=== PATIENT | female | born 1970 | race Caucasian/White ===

== ENCOUNTER 2021-08-17 07:00 | Emergency (ER) | payer MEDICARE ==
[~2021-08-17] VITALS: Ht 162.6 cm; Wt 114.0 kg
[2021-08-17 07:36] VITALS: BP 143/103
[2021-08-17 07:46] VITALS: BP 131/94
[2021-08-17] MEDS ORDERED: CYCLOBENZAPRINE10 MG PO (07:52)
[2021-08-17] MEDS ORDERED: DILAUDID2 MG PO (07:52)
[2021-08-17 08:00] VITALS: BP 155/91
[2021-08-17 08:02] VITALS: BP 155/91
== END 2021-08-17 08:10 | disposition home or self-care (01) ==
LOC: ED 07:00
DX: M54.30 Sciatica, unspecified side (principal)

== ENCOUNTER 2022-08-09 18:25 | Emergency (ER) | payer MEDICARE, MEDICAID ==
[~2022-08-09] VITALS: Ht 162.6 cm; Wt 111.0 kg
[2022-08-09] VITALS (18 sets, daily range): BP systolic 96–149; BP diastolic 42–131
[~2022-08-09 18:25] MED LIST: CYCLOBENZAPRINE10 MG PO; DILAUDID2 MG PO
[2022-08-09 19:51] LABS: BASO% 0.2 % (0-3); EOS% 0.7 % (0-8); HEMATOCRIT 44.3 % (37.0-47.0); HEMOGLOBIN 14.2 g/dl (12.0-16.0); IMMATURE GRANULOCYTES 0.5 % (0.0-5.0); LYMPH% 15.5 % (15-41); MEAN CELL VOLUME 94.9 fL CALC (80.0-100.0); MEAN CORPUSCULAR HGB 30.4 pG CALC (26.0-32.0); MEAN CORPUSCULAR HGB CONC 32.1 g/dL CAL (32.0-36.0); MONO% 5.9 % (2-13); NEUT# 14.41 thou/uL (2.00-7.15); NEUT% 77.2 % (42-76); RED BLOOD COUNT 4.67 mill/uL (4.20-5.60); RED CELL DISTRI WIDTH 12.4 % (11.5-15.5)
[2022-08-09 20:05] LABS: ALBUMIN 4.7 g/dL (3.2-5.0); ALKALINE PHOSPHATASE 86 u/l (38-126); ANION GAP 15 (6-22 (CALC)); BILIRUBIN, TOTAL 0.2 mg/dL (0.02-1.3); BUN 14 mg/dL (7-17); BUN/CREATININE RATIO 14 (12-20 (CALC)); CARBON DIOXIDE 26 mmol/l (22-30); CHLORIDE 103 mmol/l (95-108); GFR FOR AFR.AMER. > 60 ML/MIN (>=60 (CALC)); GFR OTHER RACES 58 ML/MIN (>=60 (CALC)); POTASSIUM 4.3 mmol/l (3.5-5.1); SGOT/AST 37 u/l (14-36); SODIUM 140 mmol/l (137-146); TOTAL PROTEIN 7.8 g/dL (6.3-8.2)
[2022-08-09 22:58] LABS: URINE BILIRUBIN - DIPSTICK NEGATIVE (NEGATIVE); URINE BLOOD DIPSTICK TRACE-INTACT (NEGATIVE); URINE COLOR YELLOW; URINE GLUCOSE - DIPSTICK NEGATIVE (NEGATIVE); URINE KETONE NEGATIVE (NEGATIVE); URINE LEUK ESTERASE NEGATIVE (NEGATIVE); URINE PROTEIN - DIPSTICK TRACE mg/dL (NEG-TRACE); URINE SPECIFIC GRAVITY >=1.030; URINE UROBILINOGEN - DIPSTICK 0.2 E.U./dL (0.2)
[2022-08-09 22:59] LABS: URINE NITRITE - DIPSTICK NEGATIVE (Negative)
== END 2022-08-09 23:25 | disposition home or self-care (01) ==
LOC: ED 18:25
PROVIDERS: Emergency Medicine
DX: R41.82 Altered mental status, unspecified (principal); T40.2X5A Adverse effect of other opioids, initial encounter; M54.9 Dorsalgia, unspecified; Z96.89 Presence of other specified functional implants